=== PATIENT | female | born 1960 | race Caucasian/White ===

== ENCOUNTER 2023-10-25 22:40 | Emergency (ER) | payer BC ==
[~2023-10-25] VITALS: Ht 162.6 cm; Wt 88.0 kg
[2023-10-25 22:55] VITALS: PULSE 100; RESP 18; TEMP 98.3
[2023-10-25] MEDS ORDERED: ACETAMINOPHEN 325 MG TAB ONE (23:18)
[2023-10-26] MEDS: ACETAMINOPHEN 325 MG TAB PO ONE (00:21)
[2023-10-26] MEDS: BACITRACIN ZINC 0.9GM TP ONE (00:21)
[2023-10-26 01:55] VITALS: BP 149/109; PULSE 98; RESP 18; TEMP 98.3; O2SAT 98
== END 2023-10-26 01:55 | disposition home or self-care (01) ==
LOC: FSED 22:50
DX: S63.592A Other specified sprain of left wrist, initial encounter (principal); S60.222A Contusion of left hand, initial encounter; S50.12XA Contusion of left forearm, initial encounter; S50.312A Abrasion of left elbow, initial encounter; W01.0XXA Fall on same level from slipping, tripping and stumbling without subsequent striking against object, initial encounter; Y93.01 Activity, walking, marching and hiking; Y92.89 Other specified places as the place of occurrence of the external cause; I10 Essential (primary) hypertension; Z95.4 Presence of other heart-valve replacement
CPT/HCPCS: 99284

== ENCOUNTER 2024-09-05 13:09 | Emergency (ER) | payer OTHER, MEDICARE ==
[~2024-09-05] VITALS: Ht 162.6 cm; Wt 88.6 kg
[2024-09-05] MEDS: ACETAMINOPHEN 325 MG TAB PO ONE (15:01)
[2024-09-05] MEDS: ONDANSETRON HCL 4 MG ORAL DISINTEGRATING TAB PO ONE (15:02)
[2024-09-05] MEDS: IBUPROFEN 600 MG TAB PO STA (15:02)
[2024-09-05] MEDS ORDERED: CEFDINIR300 MG PO (15:04)
[2024-09-05] MEDS ORDERED: IBUPROFEN600 MG PO (15:04)
[2024-09-05] MEDS ORDERED: ONDANSETRON ODT4 MG PO (15:17)
[2024-09-05 15:20] VITALS: PULSE 84; RESP 18; TEMP 97.7; O2SAT 97
[2024-09-05] MEDS: AMOXICILLIN/CLAVULANATE K 875 MG TAB PO STA (15:33)
== END 2024-09-05 15:19 | disposition home or self-care (01) ==
LOC: FSED 13:15
DX: R50.9 Fever, unspecified (principal); N39.0 Urinary tract infection, site not specified; Z11.52 Encounter for screening for COVID-19; Z95.1 Presence of aortocoronary bypass graft; Z98.84 Bariatric surgery status
CPT/HCPCS: 0223U; 71046; 83518; 87086; 87186; 87400; 87420; 99284; Q0162